=== PATIENT | female | born 2005 | race Caucasian/White ===

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

== ENCOUNTER 2024-03-13 17:35 | Emergency (ER) | payer OTHER, SELFPAY ==
[2024-03-13] VITALS (8 sets, daily range): BP systolic 108–132; BP diastolic 61–82; PULSE 71–82; RESP 16–18; TEMP 37; O2SAT 97–100; BMI 22.4
[2024-03-13 18:11] LABS: Add Manual Diff / Slide Review NO; Basophils Absolute Auto 0 /uL (0-100); Basophils Percent Auto 0.4 % (0-2); Eosinophils Absolute Auto 100 /uL (0-450); Eosinophils Percent Auto 1.6 % (2-4); Hematocrit 44.9 % (36-46); Lymphocytes Absolute Auto 1100 /uL (1100-4500); Lymphocytes Percent Auto 20.5 % (25-40); Mean Corpuscular HGB Conc 33.4 % (30-36); Mean Corpuscular Hemoglobin 29.5 PG (26-34); Mean Corpuscular Volume 88.3 fL (80-100); Monocytes Absolute Auto 500 /uL (0-900); Monocytes Percent Auto 8.9 % (3-14); Neutrophils Absolute Auto 3600 /uL (1500-7000); Neutrophils Percent Auto 68.6 % (50-75); Platelet Count 214 X10^3/uL (150-400); Red Blood Cell Count 5.09 X10^6/uL (4.0-5.2); Red Cell Distribution Width 13.3 % (11.6-14.8); White Blood Cell Count 5.2 X10^3/uL (4.5-11.0)
[2024-03-13 18:14] LABS: Ictotest Urine Negative (Negative)
[2024-03-13 18:18] LABS: Alanine Aminotransferase 21 IU/L (<35); Albumin 4.5 g/dL (3.5-5.0); Albumin Globulin Ratio 1.4 (1.0-2.8); Alkaline Phosphatase 74 U/L (38-126); Aspartate Aminotransferase 38 IU/L (14-36); BUN Creatinine Ratio 15.7 (6-22); Bilirubin Total 0.5 mg/dL (0.2-1.3); Blood Urea Nitrogen 11 mg/dL (7-17); Calcium 9.3 mg/dL (8.4-10.2); Carbon Dioxide 27 mmol/L (22-32); Chloride 101 mmol/L (98-107); Estimated Glomerular Filt Rate > 60 mL/min (>60); Globulin 3.2 g/dL (1.7-4.1); Glucose 91 mg/dL (70-100); HEMOLYSIS < 15 (0-50); Lipase 110 U/L (23-300); Potassium 3.5 mmol/L (3.4-5.1); Sodium 136 mmol/L (137-145); Total Protein 7.7 g/dL (6.3-8.2)
[2024-03-13 20:44] LABS: Bacteria Urine Many (>30); RBC Urine 30-100/HPF (0-5/HPF); Squamous Epithelial Cell Urine 0-1 /HPF (0-5/HPF); Urine Volume Low Vol <10mL (spun); WBC Urine 1-5/HPF (0-5/HPF)
[2024-03-13 20:45] LABS: Culture Indicated Urine Cult Not Indicated
--- NOTE | 2024-03-13 22:11 | ED_ITS ---
HPI - Abdominal Pain General Chief Complaint: Abdominal Pain Stated Complaint: WIC; Abd Pain Time Seen by Provider: 03/13/24 21:57 Source: patient Mode of arrival: Ambulatory History of Present Illness HPI narrative: Patient is a 19-year-old healthy female who presents today with abdominal pain nausea vomiting diarrhea. She reports for the last 2 days she would 1 episode of diarrhea she has had some epigastric pain some nausea vomiting. She has some nausea few hours after she eats. No fever or chills. Pain was fairly constant. She has not been eating a whole lot. No back pain no painful frequent urination. Now that she has been in the ED she does not have any sort of pain. No longer feeling nauseous. She has been urinating without difficulty. She denies any sort of surgery. Normally healthy. Related Data Previous Rx's Medication Instructions Recorded ondansetron 4 mg disintegrating 4 mg PO Q8H PRN nausea and 03/13/24 tablet vomiting #10 tabs Allergies Allergy/AdvReac Type Severity Reaction Status Date / Time No Known Drug Allergies Allergy Verified 03/13/24 22:21 Patient History Social History Smoking Status: Never smoker Smoking Status: Never smoker Exam Initial Vital Signs Initial Vital Signs: Vital Signs Temperature 98.6 F 03/13/24 17:37 Pulse Rate 72 03/13/24 17:37 Respiratory Rate 18 03/13/24 17:37 Blood Pressure 117/72 03/13/24 17:37 Pulse Oximetry 99 03/13/24 17:37 Oxygen Delivery Method Room Air 03/13/24 17:37 GENERAL: Alert pleasant well-appearing 19-year-old and in no acute distress. HEENT: Head atraumatic,EOMI, pupils reactive, face symmetric, moist mucous membranes CARDIOVASCULAR: Regular rate and rhythm without murmurs, rubs or gallops. RESPIRATORY: Breath sounds equal bilaterally, no wheezes rales or rhonchi. ABDOMEN: Soft, mild epigastric pain minimal right upper quadrant pain very minimal all over lower abdominal pain : No CVA tenderness EXTREMITIES: Normal range of motion, no clubbing or edema. Neurovascularly intact NEUROLOGICAL: Alert and oriented x4.Normal gait and speech. SKIN: Warm, dry, no laceration, no petechiae, no rashes or lesions. Course Orders Ordered: Discontinued Medications Ondansetron HCl (Ondansetron 4 Mg/2 Ml Inj) 4 mg IV NOW PRN PRN Reason: Nausea And Vomiting Ondansetron HCl (Ondansetron 4 Mg Odt) 4 mg PO NOW PRN PRN Reason: Nausea And Vomiting Ondansetron HCl (Ondansetron 4 Mg Odt Prepack) 1 bottle MISC Q4H ONE Stop: 03/13/24 22:11 Last Admin: 03/13/24 22:37 Dose: 1 bottle Documented By: JOANNA Vital Signs Vital signs: Vital Signs - 8 hr 03/13/24 21:00 03/13/24 21:00 03/13/24 21:30 Pulse Rate 71 82 Respiratory Rate Blood Pressure 111/61 Pulse Oximetry 99 97 Oxygen Delivery Method Room Air 03/13/24 21:30 03/13/24 22:00 03/13/24 22:00 Pulse Rate 77 Respiratory Rate 16 Blood Pressure 115/76 108/74 Pulse Oximetry 98 Oxygen Delivery Method Room Air MDM - Abdominal Pain Lab Data 03/13/24 17:57 03/13/24 17:57 Labs: Lab Results 03/13/24 03/13/24 Range/Units 17:45 17:57 WBC 5.2 (4.5-11.0) X10^3/uL RBC 5.09 (4.0-5.2) X10^6/uL Hgb 15.0 (12.0-16.0) g/dL Hct 44.9 (36-46) % MCV 88.3 (80-100) fL MCH 29.5 (26-34) PG MCHC 33.4 (30-36) % RDW 13.3 (11.6-14.8) % Plt Count 214 (150-400) X10^3/uL Neut % (Auto) 68.6 (50-75) % Lymph % (Auto) 20.5 L (25-40) % Nicholas % (Auto) 8.9 (3-14) % Eos % (Auto) 1.6 L (2-4) % Baso % (Auto) 0.4 (0-2) % Neut # (Auto) 3600 (5661-3292) /uL Lymph # (Auto) 1100 (7015-9659) /uL Nicholas # (Auto) 500 (0-900) /uL Eos # (Auto) 100 (0-450) /uL Baso # (Auto) 0 (0-100) /uL Sodium 136 L (137-145) mmol/L Potassium 3.5 (3.4-5.1) mmol/L Chloride 101 (98-107) mmol/L Carbon Dioxide 27 (22-32) mmol/L BUN 11 (7-17) mg/dL Creatinine 0.70 (0.52-1.04) mg/dL Estimated GFR > 60 (>60) mL/min BUN/Creatinine Ratio 15.7 (6-22) Glucose 91 (70-100) mg/dL Calcium 9.3 (8.4-10.2) mg/dL Total Bilirubin 0.5 (0.2-1.3) mg/dL AST 38 H (14-36) IU/L ALT 21 (<35) IU/L Alkaline Phosphatase 74 (38-126) U/L Total Protein 7.7 (6.3-8.2) g/dL Albumin 4.5 (3.5-5.0) g/dL Globulin 3.2 (1.7-4.1) g/dL Albumin/Globulin Ratio 1.4 (1.0-2.8) Lipase 110 (23-300) U/L Ur Bilirubin Confirm Negative (Negative) Urine RBC 30-100/hpf H (0-5/HPF) Urine WBC 1-5/hpf (0-5/HPF) Ur Squamous Epith Cells 0-1 /hpf (0-5/HPF) Urine Bacteria Many (>30) H (None) Urine Yeast >100/hpf (None) Ur Culture Indicated? Cult not indicated Vol Urine Centrifuged Low vol <10ml (spun) A Point of care testing: Point of Care Testing Test Results Negative Urine Dip Bedside Urine Glucose Negative Bedside Urine Bilirubin ++ 2 Bedside Urine Ketone +/- 5 Urine Specific [place] 1.015 Bedside Urine Occult Blood +++ Bedside Urine pH 6.0 Bedside Urine Protein ++ 100 Bedside Urine Urobilinogen - Negative Bedside Urine Nitrite - Negative Bedside Urine Leukocytes + 70 Esterase MDM Narrative Medical decision making narrative: Patient 19-year-old healthy female presenting today with 2 days of abdominal pain nausea vomiting 1 episode of diarrhea. She mildly tender in her epigastric region. No longer nauseous not vomiting in the ED for more than 4 hours. No fever or chills. Blood work has been reviewed she has no leukocytosis no ALANNA Bilirubin 0.5 AST 38 ALT 31 lipase 110 Urinalysis negative for , positive for bacteria positive for leukocytes negative nitrates positive for blood Patient's pain has overall improved. She had an episode of diarrhea some nausea couple episodes of vomiting. Possibility of gastroenteritis seems most likely. She is tolerating fluids now. We discussed possibility of cholelithiasis with her mild epigastric pain. At this time she declined have further imaging will come back if symptoms worsen. We discussed oral rehydration technique. Multiple etiologies for patient's symptoms considered including: Gastroenteritis Cholecystitis, cholelithiasis, poorly functioning gallbladder versus bowel obstruction Discharge Plan Departure Patient Disposition: Home Clinical Impression: Gastroenteritis Instructions: DI for Viral Gastroenteritis -- Adult Activity Restrictions/Additional Instructions: *You have been diagnosed with gastroenteritis *What to do: At this time increase fluids as tolerated. If you continue to have pain you may need to return to the ED for further imaging *Continue to take medications as directed Zofran 4 mg every 8 hours if needed for nausea or vomit Omeprazole 20 mg once a day found [id number] for 2 weeks Tylenol 1000 mg every 6 hours for [id number] pain *Follow up with your primary care provider in 2-3 days or call [phone] *Return to ER if you should have persistent vomiting increasing pain persistent fever [or] any new, worsening or concerning symptoms Prescriptions: New ondansetron 4 mg tablet,disintegrating 4 mg PO Q8H PRN (Reason: nausea and vomiting) Qty: 10 0RF Referrals: Miscellaneous,Doctor, [Primary Care Provider] - Stand Alone Forms: Patient Portal/API/Survey
[2024-03-13] MEDS: ONDANSETRON 4 MG ODT PREPACK 1 BOTTLE MISC (22:37)
== END 2024-03-13 22:41 | disposition home or self-care (01) ==
PROVIDERS: Emergency Medicine; Emergency Provider Emergency Medicine
DX: K52.9 Noninfective gastroenteritis and colitis, unspecified (principal)
CPT/HCPCS: 36415; 80053; 81003; 81015; 81025; 83690; 85025; 87086; 99283